=== PATIENT | female | born 1970 | race Two or more races ===

== ENCOUNTER → 2024-04-24 | Outpatient (CLI) | payer MEDICAID, SELFPAY ==
--- NOTE | 2024-04-24 10:25 | XR_ITS ---
Examination: Bilateral hands, 6 views. Technique: AP, Oblique, Lateral each hand total 6 views Date and time of exam: April 24, 2024 1027 hours INDICATIONS: Patient fell April 09, 2024 with injury to both hands, bilateral hand pain. FINDINGS: Significant osteopenia No erosive or other significant arthritic change involving either hand Acute fracture base left fifth metacarpal, no significant displacement IMPRESSION: Acute fracture base fifth metacarpal
--- NOTE | 2024-04-24 10:25 | XR_ITS ---
Examination: Bilateral wrists 6 views TECHNIQUE: AP oblique lateral each wrist total 6 views Exam date and time: April 24, 2024 10:34 AM INDICATIONS: Patient fell April 09, 2024 with injury to both wrists, bilateral wrist pain. FINDINGS: Moderate osteopenia. Acute fracture base fifth metacarpal without significant displacement No foreign bodies IMPRESSION: Acute fracture base fifth metacarpal
== END | disposition home or self-care (01) ==
PROVIDERS: PCP Nurse Practitioner Family; Referring Provider Nurse Practitioner Gerontology; Visit Provider Nurse Practitioner Gerontology
DX: S62.317A Displaced fracture of base of fifth metacarpal bone, left hand, initial encounter for closed fracture (principal); S69.91XA Unspecified injury of right wrist, hand and finger(s), initial encounter; S69.92XA Unspecified injury of left wrist, hand and finger(s), initial encounter; W19.XXXA Unspecified fall, initial encounter
CPT/HCPCS: 73110; 73130

== ENCOUNTER → 2024-06-07 | Outpatient (CLI) | payer MEDICAID, SELFPAY ==
--- NOTE | 2024-06-07 08:45 | XR_ITS ---
Examination: Screening digital mammography, bilateral Computer aided detection 3-D breast Tomosynthesis, bilateral Date and time of exam: June 07, 2024 0839 hours Compared to mammograms dating to April 17, 2018 Indication: Screening Technique: Nonmagnified MLO, CC views of the breasts to been obtained, reconstructed from 3-D Tomosynthesis images. R2 computer aided detection program utilized for evaluation of suspicious masses and/or abnormal calcifications. 3-D Tomosynthesis images obtained. Findings: The breasts are heterogeneously dense, which may obscure small masses Breast biopsy marker nipple level left breast with scar formation No interval suspicious masses Impression: BI-RADS category II: Benign Findings. Recommend 1 year follow-up mammogram.
== END | disposition home or self-care (01) ==
LOC: CDIM 08:32
PROVIDERS: PCP Nurse Practitioner Family; Referring Provider Physician Assistant Medical; Visit Provider Physician Assistant Medical
DX: Z12.31 Encounter for screening mammogram for malignant neoplasm of breast (principal); R92.323 Mammographic fibroglandular density, bilateral breasts; R92.1 Mammographic calcification found on diagnostic imaging of breast
CPT/HCPCS: 77063; 77067

== ENCOUNTER → 2024-06-19 | Outpatient (CLI) | payer MEDICAID, SELFPAY ==
--- NOTE | 2024-06-19 10:05 | XR_ITS ---
Examination: Humerus 2 views left Technique: Humerus, AP lateral 2 views Date and time of exam: June 19, 2024 1022 hours INDICATIONS: Left arm pain years. FINDINGS: Moderate osteopenia Moderate narrowing glenohumeral joint No shoulder or humeral shaft fracture IMPRESSION: Moderate narrowing glenohumeral joint
== END | disposition home or self-care (01) ==
LOC: CDIM 09:35
PROVIDERS: PCP Nurse Practitioner Family; Referring Provider Nurse Practitioner Family; Visit Provider Nurse Practitioner Family
DX: M25.812 Other specified joint disorders, left shoulder (principal)
CPT/HCPCS: 73060

== ENCOUNTER 2024-07-03 15:30 | Outpatient (RCR) | payer MEDICAID, SELFPAY ==
--- NOTE | 2024-06-20 14:24 | PTNOTE_ITS ---
PT OP Initial Eval Patient Information Outpatient Physical Therapy Treatment Date: 06/20/24 Visit Reasons: Left wrist pain Medical Diagnosis: S62.307A M25.532 M79.642 Treatment Dx #1: L wrist pain Treatment Dx #2: L hand pain Start of Care: 06/20/24 Date of Onset: 04/09/24 Smoking Status Smoking Status: Never smoker Initial Assessment Subjective: Pt is 53 yr old romanian speaking female who fell and fractured the base of 5th metacarpal on the L reports low pain level except with pushing on the hand to get up from a chair. She can do HH chores with min pain in the wrist. PMH: vertigo, Arnold chiari malformation Imaging: Xrays in EMR Pt goal: for the pain to go away in the hand Objective: Samir support team assoc strength R: 23 lbs, L: 15 lbs L wrist ArOM: Flexion: 50 deg Extension: full Ulnar dev: full Radial dev: full TTP: moderate of base of 5th metacarpal Assessment: Pt presents with decreased L hand support team assoc strength and TTP of wrist consistent with referring Dx. Pt requires skilled therapy to meet goals and has good rehab potential. Short Term and Retirement Goals 1. Ind with HEP 2. Improved support team assoc strength on L to at least 23 lbs to equal R 3. Pt will use hand to push up from a chair without pain x1 Treatment Plan ?1. Manual therapy ? 2. Therex ? 3. Modalities as indicated, moist heat, ice, estim Frequency and Duration: 1-2x a week for 12 visits Certification Dates: 06/20/24 to 09/16/24 Procedure Charges OP PT Eval Mod Complex 30 minutes: Yes
--- NOTE | 2024-06-25 14:08 | PT.ODAYNRPT ---
PT Outpatient Daily Note OP Daily Note Outpatient Physical Therapy Treatment Date: 06/25/24 Visit Reasons: Left wrist pain Subjective: Same as time of evaluation Objective: See F/S for therex MHP L hand x7' Assessment: Pain with gripping with resistance of 5th metacarpal but able to Plan: Continue per POC Length of Time (minutes) of Treatment: 30 Minutes Procedure Charges Therapeutic Exercise 30 minutes: Yes
--- NOTE | 2024-06-27 16:09 | PT.ODAYNRPT ---
PT Outpatient Daily Note OP Daily Note Outpatient Physical Therapy Treatment Date: 06/27/24 Visit Reasons: Left wrist pain Subjective: Low pain in L wrist today Objective: See F/S for therex Assessment: Pain with gripping with resistance of 5th metacarpal but able to Plan: Continue per POC Length of Time (minutes) of Treatment: 30 Minutes Procedure Charges Therapeutic Exercise 30 minutes: Yes
--- NOTE | 2024-07-03 18:01 | PT.ODAYNRPT ---
PT Outpatient Daily Note OP Daily Note Outpatient Physical Therapy Treatment Date: 07/03/24 Visit Reasons: Left wrist pain Subjective: Low pain in L wrist today Objective: See F/S for therex Assessment: Pain with gripping with resistance of 5th metacarpal Plan: Continue per POC Length of Time (minutes) of Treatment: 30 Minutes Procedure Charges Therapeutic Exercise 30 minutes: Yes
== END 2024-07-05 23:59 | disposition home or self-care (01) ==
LOC: CPTX 15:30
PROVIDERS: PCP Nurse Practitioner Gerontology; Referring Provider Nurse Practitioner Gerontology; Visit Provider Nurse Practitioner Gerontology
DX: M25.532 Pain in left wrist (principal); M79.642 Pain in left hand; S62.307D Unspecified fracture of fifth metacarpal bone, left hand, subsequent encounter for fracture with routine healing; W19.XXXD Unspecified fall, subsequent encounter
CPT/HCPCS: 97110; 97162

== ENCOUNTER → 2024-07-11 | Outpatient (BNVA) | payer MEDICARE, MEDICAID, SELFPAY | END | disposition home or self-care (01) | PROVIDERS: PCP Nurse Practitioner Family; Referring Provider Nurse Practitioner Family; Visit Provider Urology | DX: R31.29 Other microscopic hematuria (principal); Z87.440 Personal history of urinary (tract) infections; G47.00 Insomnia, unspecified; F41.9 Anxiety disorder, unspecified | CPT/HCPCS: 81003; 99203; G0463 ==

== ENCOUNTER → 2024-07-16 | Outpatient (CLI) | payer MEDICARE, MEDICAID, SELFPAY ==
--- NOTE | 2024-07-16 13:35 | XR_ITS ---
Examination: Bone densitometry Date and time of exam:July 16, 2024 1346 hours INDICATIONS: Hysterectomy age 37 diagnosis uterine cancer Technique: Lumbar spine and hip total bone mineralization values of an calculated. Peak reference and age match control results have been displayed. Findings: Lumbar spine total bone mineralization is0.843 gm/cm2. This is 1.9 standard deviations below peak reference. This is 1.0 standard deviations below age-matched controls. Hip total bone mineralization is 0.795 gm/cm2 This is 1.2 standard deviations below peak reference. This is 0.7 standard deviations below age-matched controls Impression: There is osteopenia based on lumbar spine measurements. There is osteopenia based on hip measurements
== END | disposition home or self-care (01) ==
LOC: CDIM 13:21
PROVIDERS: Referring Provider Nurse Practitioner Family; Visit Provider Nurse Practitioner Family
DX: M85.89 Other specified disorders of bone density and structure, multiple sites (principal)
CPT/HCPCS: 77080

== ENCOUNTER 2024-07-30 15:30 | Outpatient (RCR) | payer MEDICAID, SELFPAY ==
--- NOTE | 2024-07-10 11:27 | PT.ODAYNRPT ---
PT Outpatient Daily Note OP Daily Note Outpatient Physical Therapy Treatment Date: 07/10/24 Visit Reasons: Left wrist pain Subjective: Pt reports L hand is doing ok, still gets pain and is tender when WB on palm. Objective: Please see flow sheet for ther ex list. 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 Plan: Continue with POc. Length of Time (minutes) of Treatment: 30 Minutes Procedure Charges Therapeutic Exercise 30 minutes: Yes
--- NOTE | 2024-07-15 17:49 | PT.ODAYNRPT ---
PT Outpatient Daily Note OP Daily Note Outpatient Physical Therapy Treatment Date: 07/15/24 Visit Reasons: Left wrist pain Subjective: Pain with pushing off the hand to get up Objective: See F/S for therex MT: STM 5th metacarpal x5' Assessment: Pain with gripping with resistance of 5th metacarpal Plan: Continue per POC Length of Time (minutes) of Treatment: 30 Minutes Procedure Charges Therapeutic Exercise 30 minutes: Yes
--- NOTE | 2024-07-17 13:00 | PT.ODAYNRPT ---
PT Outpatient Daily Note OP Daily Note Outpatient Physical Therapy Treatment Date: 07/17/24 Visit Reasons: Left wrist pain Subjective: Pt reports hand is improving, feels PT has helped. Objective: Please see flow sheet for ther ex list. Assessment: Continued focus on restoring functional strength. Plan: Continue with pOC. Length of Time (minutes) of Treatment: 30 Minutes Procedure Charges Therapeutic Exercise 30 minutes: Yes
--- NOTE | 2024-07-23 13:19 | PT.ODAYNRPT ---
PT Outpatient Daily Note OP Daily Note Outpatient Physical Therapy Treatment Date: 07/23/24 Visit Reasons: Left wrist pain Subjective: Pt reports L wrist is progressing. Objective: Please see flow sheet for ther ex list. Assessment: Decrease pain and complaints with interventions allowing for intervention progression. Plan: Continue with POC. Length of Time (minutes) of Treatment: 30 Minutes Procedure Charges Therapeutic Exercise 30 minutes: Yes
--- NOTE | 2024-07-30 16:36 | PT.ODAYNRPT ---
PT Outpatient Daily Note OP Daily Note Outpatient Physical Therapy Treatment Date: 07/30/24 Visit Reasons: Left wrist pain Subjective: Less pain with pushing off the hand to get up. Better function with HH chores Objective: See F/S for therex Assessment: Less pain with gripping with resistance of 5th metacarpal Plan: Continue per POC Length of Time (minutes) of Treatment: 30 Minutes Procedure Charges Therapeutic Exercise 30 minutes: Yes
== END 2024-08-02 23:59 | disposition home or self-care (01) ==
LOC: CPTX 15:30
PROVIDERS: PCP Nurse Practitioner Gerontology; Referring Provider Nurse Practitioner Gerontology; Visit Provider Nurse Practitioner Gerontology
DX: M79.642 Pain in left hand (principal); M25.532 Pain in left wrist; S62.307D Unspecified fracture of fifth metacarpal bone, left hand, subsequent encounter for fracture with routine healing; W19.XXXD Unspecified fall, subsequent encounter
CPT/HCPCS: 97110

== ENCOUNTER → 2024-08-20 | Outpatient (CLI) | payer MEDICARE, MEDICAID, SELFPAY ==
--- NOTE | 2024-08-20 10:36 | XR_ITS ---
Examination: Hand, left 3 views Technique: Hand AP, oblique, lateral 3 views Date and time of exam: August 20, 2024 1103 hours INDICATIONS: Patient fell 3 months ago with injury to the wrist and hand, wrist pain hand pain FINDINGS: Moderate osteopenia No acute fracture No dislocation IMPRESSION: No acute fracture
--- NOTE | 2024-08-20 10:36 | XR_ITS ---
Examination: Wrist, left 3 views Technique: Wrist AP, oblique, lateral 3 views Date and time of exam: August 20, 2024 at 1103 hours INDICATIONS: Patient fell 3 days ago with injury to the wrist, wrist pain. FINDINGS: No acute fracture No dislocation IMPRESSION: No acute fracture
== END | disposition home or self-care (01) ==
DX: S69.92XA Unspecified injury of left wrist, hand and finger(s), initial encounter (principal); W19.XXXA Unspecified fall, initial encounter
CPT/HCPCS: 73110; 73130

== ENCOUNTER 2024-08-26 11:00 | Outpatient (RCR) | payer MEDICAID, SELFPAY ==
--- NOTE | 2024-08-06 16:17 | PT.ODAYNRPT ---
PT Outpatient Daily Note OP Daily Note Outpatient Physical Therapy Treatment Date: 08/06/24 Visit Reasons: Left wrist pain Subjective: Less pain with pushing off the hand to get up. Better function with HH chores Objective: See F/S for therex Assessment: Less pain with gripping with resistance of 5th metacarpal Plan: Continue per POC Length of Time (minutes) of Treatment: 30 Minutes Procedure Charges Therapeutic Exercise 30 minutes: Yes
--- NOTE | 2024-08-13 13:25 | PT.ODAYNRPT ---
PT Outpatient Daily Note OP Daily Note Outpatient Physical Therapy Treatment Date: 08/13/24 Visit Reasons: Left wrist pain Subjective: Pt reports L wrist is doing ok, still has pain at times and can not WB on that hand. As per pt she has a follow up with the MD at the end of the month, MD might order further imaging. Objective: Please see flow sheet for ther ex list. Assessment: Performed STM to L hand, pt reported decrease discomfort post STM. Plan: Continue with POC. Pt has 2 visit remaining. Length of Time (minutes) of Treatment: 30 Minutes Procedure Charges Therapeutic Exercise 30 minutes: Yes
--- NOTE | 2024-08-15 17:22 | PT.ODAYNRPT ---
PT Outpatient Daily Note OP Daily Note Outpatient Physical Therapy Treatment Date: 08/15/24 Visit Reasons: Left wrist pain Subjective: Less pain with pushing off the hand to get up. Better function with HH chores Objective: See F/S for therex Assessment: Less pain with gripping with resistance of 5th metacarpal Plan: Reassess Length of Time (minutes) of Treatment: 30 Minutes Procedure Charges Therapeutic Exercise 30 minutes: Yes
--- NOTE | 2024-08-26 11:34 | PT.ODS1RPT ---
PT OP Progress/Discharge Note Date of Service: 08/26/24 Progress Note/DC Note Progress Note/Discharge Note: DC Note Patient Information Visit Reasons: Left wrist pain Service Continue Service or Discharge: Discharge Discharge Date: 08/26/24 Status Subjective: Continued pain with pushing off the hand to get up. 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 Xray Tech strength is still 15 lbs same as the evaluation and it hurts to use the hand to push up from a chair. It doesn't seem like she is making progress with therapy goals. She may want to continue at home with HEP. Plan: D/C with HEP. Procedure Charges Therapeutic Exercise 30 minutes: Yes
== END 2024-09-02 23:59 | disposition home or self-care (01) ==
LOC: CPTX 11:00
PROVIDERS: PCP Nurse Practitioner Gerontology; Referring Provider Nurse Practitioner Gerontology; Visit Provider Nurse Practitioner Gerontology
DX: M25.532 Pain in left wrist (principal); M79.642 Pain in left hand; S62.317D Displaced fracture of base of fifth metacarpal bone, left hand, subsequent encounter for fracture with routine healing; W19.XXXD Unspecified fall, subsequent encounter
CPT/HCPCS: 97110

== ENCOUNTER → 2024-11-15 | Outpatient (CLI) | payer MEDICARE, MEDICAID, SELFPAY ==
[2024-11-15 12:09] LABS: Collection Type, Urine Clean Catch
[2024-11-15 13:03] LABS: Bacteria,Urine Rare; Bilirubin,Urine Negative (Negative); Blood,Urine 3+ (Negative); Clarity,Urine Clear (Clear/Hazy); Color,Urine Yellow (Lt Yel-Yel); Glucose, Urine Negative (Negative); Ketones,Urine Trace (Negative); Leukocyte Esterase,Urine Positive (Negative); Nitrite,Urine Negative (Negative); PH,Urine 5.5 (5.0-7.0); Protein,Urine Trace (Neg - Trace); RBC,Urine 47 /hpf (0-3); Specific Gravity,Urine 1.028 (1.001-1.035); Squamous Epithelial Cell,Urine 1 /hpf (0-5); WBC,Urine 4 /hpf (0-5)
== END | disposition home or self-care (01) ==
LOC: SLDO 12:00
PROVIDERS: Referring Provider Urology; Visit Provider Urology
DX: R31.9 Hematuria, unspecified (principal)
CPT/HCPCS: 81001

== ENCOUNTER → 2025-02-18 | Outpatient (BNVA) | payer MEDICARE, MEDICAID, SELFPAY | END | disposition home or self-care (01) | PROVIDERS: PCP Family Medicine; Referring Provider Family Medicine; Visit Provider Urology | DX: R31.29 Other microscopic hematuria (principal); Z87.440 Personal history of urinary (tract) infections; G47.00 Insomnia, unspecified; F41.9 Anxiety disorder, unspecified; Z90.49 Acquired absence of other specified parts of digestive tract | CPT/HCPCS: 81003; 99212; 99213; G0463 ==

== ENCOUNTER → 2025-02-18 | Outpatient (CLI) | payer MEDICARE, MEDICAID, SELFPAY ==
[2025-02-18 12:24] LABS: Alanine Aminotransferase 16 U/L (10-49); Albumin, Serum 4.2 gm/dL (3.5-5.0); Albumin/Globulin Ratio 1.5 (1.2-2.2); Alkaline Phosphatase 82 U/L (46-116); Anion Gap 8 (7-16); Aspartate Amino Transferase 18 U/L (0-34); BUN/Creatinine Ratio 15 Ratio (12-20); Bilirubin,Total 0.3 mg/dL (0.3-1.2); Blood Urea Nitrogen 12 mg/dL (9-23); Calcium 9.6 mg/dL (8.3-10.6); Calcium (Corrected) 9.6 mg/dL (8.5-10.1); Carbon Dioxide 26.9 mMol/L (20.0-31.0); Chloride 105 mMol/L (98-107); Creatinine (Component) 0.8 mg/dL (0.6-1.3); Globulin 2.8 gm/dL (2.3-3.5); Glucose 94 mg/dL (74-106); Osmolality,Calculated 279 (275-295); Potassium 4.4 mMol/L (3.4-5.1); Sodium 140 mMol/L (136-145); Total Protein 7.0 gm/dL (5.7-8.2); eGFR > 60 See Note
== END | disposition home or self-care (01) ==
LOC: COPL 10:54
PROVIDERS: PCP Family Medicine; Referring Provider Urology; Visit Provider Urology
DX: R31.1 Benign essential microscopic hematuria (principal)
CPT/HCPCS: 36415; 80053

== ENCOUNTER → 2025-03-20 | Outpatient (CLI) | payer MEDICARE, MEDICAID, SELFPAY ==
--- NOTE | 2025-03-20 14:30 | XR_ITS ---
Examination: CT abdomen with intravenous contrast CT pelvis with intravenous contrast 2-D coronal reconstructions 2-D sagittal reconstructions Date and time of exam: March 20, 2025, 1439 hours INDICATIONS: Hematuria episodes beginning 10 years ago COMPARISON: 02/05/2022. CTDI: vol (mGy) 13.7 DLP: (mGycm) 737 Technique: Multiple axial sections of the abdomen and pelvis have been obtained. 64 slice high-resolution scanner used. 3 mm axial sections have been obtained, post intravenous injection 60 cc [id number] 2-D sagittal, coronal reconstructions obtained. Low dose protocols were performed. One or more of the following dose reduction techniques were used; automated exposure control, adjustment of the mA and/or KV according to patient size, use of iterative reconstruction technique. Findings: No focal liver or splenic lesions Absent gallbladder No pancreatic or adrenal mass No renal or ureteral calculi, no hydronephrosis No solid renal mass lesion Minute fat-containing umbilical hernia Absent appendix No bowel obstruction No bladder mass or bladder calculi No pelvic mass Osseous structures intact IMPRESSION: No renal or ureteral calculi, no hydronephrosis Normal appendix No bladder mass or bladder calculi
== END | disposition home or self-care (01) ==
LOC: SCAT 14:07
PROVIDERS: PCP Family Medicine; Referring Provider Urology; Visit Provider Urology
DX: R31.1 Benign essential microscopic hematuria (principal)
CPT/HCPCS: 74177; A4649; Q9967

== ENCOUNTER → 2025-03-25 | Outpatient (BNVA) | payer MEDICARE, MEDICAID, SELFPAY | END | disposition home or self-care (01) | PROVIDERS: PCP Family Medicine; Referring Provider Family Medicine; Visit Provider Urology | DX: D41.4 Neoplasm of uncertain behavior of bladder (principal); N35.92 Unspecified urethral stricture, female | CPT/HCPCS: 52214; 81003; 96372; A4217; A4649; C1894; J1580; A9270 ==

== ENCOUNTER → 2025-03-27 | Outpatient (CLI) | payer MEDICARE, MEDICAID, SELFPAY ==
--- NOTE | 2025-03-27 09:39 | XR_ITS ---
EXAMINATION: Right knee 2 views TECHNIQUE: AP lateral right knee 2 views Date and time: March 27, 2025, 0948 hours INDICATIONS: Injury to the knee 1 month ago with knee pain. FINDINGS: Mild narrowing medial and lateral joint spaces. No fracture or dislocation. Small knee effusion IMPRESSION: No fracture or dislocation
== END | disposition home or self-care (01) ==
PROVIDERS: PCP Family Medicine; Referring Provider Family Medicine; Visit Provider Family Medicine
DX: S89.91XA Unspecified injury of right lower leg, initial encounter (principal); X58.XXXA Exposure to other specified factors, initial encounter
CPT/HCPCS: 73560